=== PATIENT | female | born 1980 | race Caucasian/White ===

== ENCOUNTER 2017-09-01 08:18 | Outpatient (CLI) ==
--- NOTE | 2017-09-01 09:50 | DI ---
EXAM: Chest two view, frontal and lateral views. HISTORY: Persistent cough. COMPARISON: None available. FINDINGS: The heart size is normal. There is no pulmonary vascular congestion. The lungs are clear . No pleural effusion or pneumothorax is seen. No acute osseous abnormality identified. Right uppe r quadrant surgical clips noted. IMPRESSION: No acute cardiopulmonary process.
== END 2017-09-01 08:19 | disposition home or self-care (01) ==
LOC: RAD 08:18
PROVIDERS: ATTEND Internal Medicine
DX: R05 Cough (principal)

== ENCOUNTER 2018-08-23 10:17 | Day surgery (SDC) | payer OTHER ==
[2018-08-23] MEDS ORDERED: LIDOCAINE 1% 20 ML MDV ID STA (11:16)
[2018-08-23 11:21] VITALS: TEMP 97.6
[2018-08-23] MEDS ORDERED: LIDOCAINE HCL 2% LUER-JET ONE (12:30)
[2018-08-23] MEDS ORDERED: VERSED ONE (12:30)
[2018-08-23] MEDS ORDERED: DIPRIVAN 20 ML VIAL IVP ONE (12:30)
[2018-08-23 14:30] VITALS: BP 123/66
--- NOTE | 2018-08-24 09:15 | OP ---
PROCEDURE: EGD (ESOPHAGOGASTRODUODENOSCOPY) WITH BIOPSY. ENDOSCOPIST: Betty MANCIA M.D. INDICATION: IRON DEFICIENCY ANEMIA INSTRUMENT: [id number]. MEDICATION: PER ANESTHESIA. PROCEDURE: The patient was positioned for endoscopy. The endoscope was advanced to the the oropharynx and into the esophagus from there to the duodenum. Multiple biopsies were obtained from the duodenum to exclude celiac disease. The duodenum was normal. The pylorus was widely patent. The antrum was normal. Retroflex exam revealed normal cardia. The Z-line was regular. The esophagus was normal. ASSESSMENT: 1. Normal endoscopy 2. Biopsy of small bowel to exclude celiac disease PLAN: 1. [facility]
--- NOTE | 2018-08-24 09:19 | OP ---
PROCEDURE: COLONOSCOPY TO THE CECUM. ENDOSCOPIST: Betty MANCIA M.D. INDICATION: IRON DEFICIENCY ANEMIA INSTRUMENT: [id number]. MEDICATION: PER ANESTHESIA. PROCEDURE: The patient was positioned for colonoscopy. The digital rectal exam was negative. The colonoscope was inserted through the anus and advanced to the cecum. The cecum was identified using the ileocecal valve and the appendiceal orifice as landmarks. The scope was slowly withdrawn through an adequately prepped colon. The terminal ileum is intubated and is normal. The colon is normal throughout. Retroflex exam was normal. Withdraw time 6 minutes and 33 seconds. PLAN: 1. We will see her back in the office next week to review her pathology. 2. Most likely she will need a CT enterography as well as capsule endoscopy. We will make these arrangements when we see her back next week. CC: Dr. Tiffany Aguirre. [facility]ITAL[facility]ermain
== END 2018-08-23 14:00 | disposition home or self-care (01) ==
LOC: SURG 10:17
PROVIDERS: ATTEND Internal Medicine Gastroenterology
DX: D50.9 Iron deficiency anemia, unspecified (principal)